=== PATIENT | female | born 1995 | race Caucasian/White ===

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

== ENCOUNTER → 2017-01-18 | Outpatient (CLI) | payer BC ==
[~2017-01-18] MED LIST changes: +PHENERGAN 25 TA25 MG PO
== END ==
LOC: BHSO 11:16
DX: F43.10 Post-traumatic stress disorder, unspecified (principal)

== ENCOUNTER → 2017-02-27 | Outpatient (CLI) | payer BC ==
[~2017-02-27] MED LIST changes: -PHENERGAN 25 TA25 MG PO
== END ==
LOC: BHSO 13:13
DX: F43.10 Post-traumatic stress disorder, unspecified (principal)

== ENCOUNTER → 2017-03-28 | Outpatient (CLI) | payer BC | LOC: BHSO 09:53 | DX: F43.10 Post-traumatic stress disorder, unspecified (principal) ==

== ENCOUNTER 2018-07-21 21:46 | Emergency (ER) | payer BC ==
[~2018-07-21] VITALS: Ht 160 cm; Wt 81.8 kg
[2018-07-22 00:44] LABS: BASO % 0.3 % (0.0-2.0); GRAN % 87.9 % (42.2-75.2); HEMATOCRIT 38.6 % (35.0-45.0); HEMOGLOBIN 12.9 g/dl (12.0-15.0); LYMPH # 0.6 (1.2-3.4); LYMPH % 7.4 % (20.0-51.0); MEAN CELL VOLUME 89 fl (80.0-95.0); MEAN CORPUSCULAR HEMOGLOBIN 30 pg (26.0-32.0); MEAN CORPUSCULAR HGB CONC 33 g/dl (33.0-37.0); MEAN PLATELET VOLUME 10.3 fl (7.4-10.4); MONO # 0.3 (0.1-0.6); PLATELET COUNT 193 K/mm3 (130-400); RED BLOOD COUNT 4.33 M/mm3 (4.10-5.30); REDCELL DISTRIBUTION WIDTH-CV 13.2 % (11.5-14.5)
[2018-07-22 01:04] LABS: ALBUMIN 4.2 gm/dL (3.5-5.0); BILIRUBIN,TOTAL 0.7 mg/dL (0.0-1.0); C-REACTIVE PROTEIN 4.1 mg/dL (0.0-0.9); CREATININE, serum 0.76 mg/dL (0.52-1.25); POTASSIUM 3.7 mmol/L (3.4-5.0); TOTAL PROTEIN 7.1 gm/dL (6.4-8.2)
[2018-07-22 03:40] LABS: COLLECTION METHOD CLEAN CATCH
[2018-07-22 04:25] LABS: MUCOUS Present /lpf; PH 5 (5-8); SQUAMOUS EPITHELIAL 0-2 /hpf; URINE APPEARANCE Hazy; URINE BACTERIA None Seen /hpf; URINE BILIRUBIN Negative (NEGATIVE); URINE BLOOD Negative (NEGATIVE); URINE COLOR Yellow; URINE GLUCOSE Negative (NEGATIVE); URINE KETONE 1+ (NEGATIVE); URINE LEUKOCYTE ESTERASE Negative (NEGATIVE); URINE NITRATE Negative (NEGATIVE); URINE PROTEIN(semi-quant) Negative (NEGATIVE); URINE RBC 0-2 /hpf; URINE UROBILINOGEN >=4.0 mg/dL (NEGATIVE)
[2018-07-22] MEDS ORDERED: PHENERGAN 25 TA25 MG PO (06:31)
[2018-07-22 06:40] VITALS: BP 100/51; PULSE 74; TEMP 97.9
== END 2018-07-22 06:42 | disposition home or self-care (01) ==
LOC: COL.ER 21:46
PROVIDERS: Emergency Medicine
DX: R11.2 Nausea with vomiting, unspecified (principal); R10.13 Epigastric pain; F90.9 Attention-deficit hyperactivity disorder, unspecified type; K21.9 Gastro-esophageal reflux disease without esophagitis
CPT/HCPCS: J2405; J2550; J7030; Q9967